=== PATIENT | male | born 1985 | race Caucasian/White ===

== ENCOUNTER 2020-11-14 06:59 | Observation (INO) | payer MEDICAID ==
[2020-11-14] MEDS ORDERED: PANTOPRAZOLE 40 MG/10 ML VIAL IVP STA (07:08)
--- NOTE | 2020-11-14 07:15 | ED ---
General Adult HPI - General Stated complaint: Vomiting Time Seen by Provider: 11/14/20 07:01 Source: patient, EMS, RN notes reviewed Mode of arrival: EMS Limitations: no limitations - History of Present Illness Initial comments: This a 35-year-old male presents emergency Department with chief complaint of significant hematemesis. Patient states that he woke up states he felt sick to his stomach, went to sit on the toilet and states that he started vomiting bright red blood. Patient's significant other in the room states she is an ER nurse steroids roughly several 100 mLs of blood. Patient does have blood noted on his lower extremities. Patient went of upper abdominal pain. Patient had EGD performed by Dr. Wang at [facility] over a year and a half ago. Patient states that he was noted to have some strictures and he was advised to start omeprazole but he has not been taking this. Patient denies any chest pain shortness of breath headache or dizziness patient states she's had no melanotic stools. - Related Data Allergies Allergy/AdvReac Type Severity Reaction Status Date / Time No Known Allergies Allergy Verified 11/14/20 07:12 Review of Systems ROS Statement: Those systems with pertinent positive or pertinent negative responses have been documented in the HPI. ROS Other: All systems not noted in ROS Statement are negative. Past Medical History Past Medical History: No Reported History History of Any Multi-Drug Resistant Organisms: None Reported Past Surgical History: No Surgical Hx Reported Past Psychological History: No Psychological Hx Reported Smoking Status: Never smoker Past Alcohol Use History: Daily Past Drug Use History: None Reported General Exam Limitations: no limitations General appearance: alert, in no apparent distress Head exam: Present: atraumatic, normocephalic, normal inspection Eye exam: Present: normal appearance, PERRL, EOMI. Absent: scleral icterus, conjunctival injection, periorbital swelling Neck exam: Present: normal inspection. Absent: tenderness, meningismus, lymphadenopathy Respiratory exam: Present: normal lung sounds bilaterally. Absent: respiratory distress, wheezes, rales, rhonchi, stridor Cardiovascular Exam: Present: regular rate, normal rhythm, normal heart sounds. Absent: systolic murmur, diastolic murmur, rubs, gallop, clicks GI/Abdominal exam: Present: soft, tenderness (Moderate upper), normal bowel sounds. Absent: distended, guarding, rebound, rigid Back exam: Absent: CVA tenderness (R), CVA tenderness (L) Neurological exam: Present: alert Skin exam: Present: warm, dry, intact, normal color. Absent: rash Course Vital Signs 11/14/20 11/14/20 07:05 07:58 Temperature 97.9 F Pulse Rate 88 96 Respiratory 18 Rate Blood Pressure 97/70 116/74 O2 Sat by Pulse 97 99 Oximetry Medical Decision Making - Medical Decision Making 35-year-old male presented for hematemesis. Patient did have reported significant amount of hematemesis. Patient is very heavy binge drinker patient does have some prior strictures on EGD. Patient was given Protonix will be admitted for GI consult for possible esophageal varices. - Lab Data Result diagrams: 11/14/20 07:20 11/14/20 07:20 Lab Results 11/14/20 11/14/20 11/14/20 Range/Units 07:20 07:20 07:20 WBC 12.9 H (3.8-10.6) k/uL RBC 4.29 L (4.30-5.90) m/uL Hgb 13.9 (13.0-17.5) gm/dL Hct 40.6 (39.0-53.0) % MCV 94.5 (80.0-100.0) fL MCH 32.3 (25.0-35.0) pg MCHC 34.2 (31.0-37.0) g/dL RDW 14.5 (11.5-15.5) % Plt Count 258 (150-450) k/uL MPV 7.4 Neutrophils % 80 % Lymphocytes % 13 % Monocytes % 4 % Eosinophils % 1 % Basophils % 1 % Neutrophils # 10.4 H (1.3-7.7) k/uL Lymphocytes # 1.6 (1.0-4.8) k/uL Monocytes # 0.5 (0-1.0) k/uL Eosinophils # 0.1 (0-0.7) k/uL Basophils # 0.1 (0-0.2) k/uL Poikilocytosis Slight PT (9.0-12.0) sec INR (<1.2) APTT (22.0-30.0) sec Sodium 138 (137-145) mmol/L Potassium 4.0 (3.5-5.1) mmol/L Chloride 108 H (98-107) mmol/L Carbon Dioxide 17 L (22-30) mmol/L Anion Gap 13 mmol/L BUN 20 (9-20) mg/dL Creatinine 0.75 (0.66-1.25) mg/dL Est GFR (CKD-EPI)AfAm >90 (>60 ml/min/1.73 sqM) Est GFR (CKD-EPI)NonAf >90 (>60 ml/min/1.73 sqM) Glucose 109 H (74-99) mg/dL Plasma Lactic Acid Nikhil 2.0 (0.7-2.0) mmol/L Calcium 8.6 (8.4-10.2) mg/dL Total Bilirubin 0.4 (0.2-1.3) mg/dL AST 39 (17-59) U/L ALT 62 H (4-49) U/L Alkaline Phosphatase 47 (38-126) U/L Total Protein 6.3 (6.3-8.2) g/dL Albumin 3.7 (3.5-5.0) g/dL Amylase 59 (30-110) U/L Lipase 52 (23-300) U/L Serum Alcohol 115 mg/dL 11/14/20 Range/Units 07:20 WBC (3.8-10.6) k/uL RBC (4.30-5.90) m/uL Hgb (13.0-17.5) gm/dL Hct (39.0-53.0) % MCV (80.0-100.0) fL MCH (25.0-35.0) pg MCHC (31.0-37.0) g/dL RDW (11.5-15.5) % Plt Count (150-450) k/uL MPV Neutrophils % % Lymphocytes % % Monocytes % % Eosinophils % % Basophils % % Neutrophils # (1.3-7.7) k/uL Lymphocytes # (1.0-4.8) k/uL Monocytes # (0-1.0) k/uL Eosinophils # (0-0.7) k/uL Basophils # (0-0.2) k/uL Poikilocytosis PT 11.0 (9.0-12.0) sec INR 1.0 (<1.2) APTT 21.4 L (22.0-30.0) sec Sodium (137-145) mmol/L Potassium (3.5-5.1) mmol/L Chloride (98-107) mmol/L Carbon Dioxide (22-30) mmol/L Anion Gap mmol/L BUN (9-20) mg/dL Creatinine (0.66-1.25) mg/dL Est GFR (CKD-EPI)AfAm (>60 ml/min/1.73 sqM) Est GFR (CKD-EPI)NonAf (>60 ml/min/1.73 sqM) Glucose (74-99) mg/dL Plasma Lactic Acid Nikhil (0.7-2.0) mmol/L Calcium (8.4-10.2) mg/dL Total Bilirubin (0.2-1.3) mg/dL AST (17-59) U/L ALT (4-49) U/L Alkaline Phosphatase (38-126) U/L Total Protein (6.3-8.2) g/dL Albumin (3.5-5.0) g/dL Amylase (30-110) U/L Lipase (23-300) U/L Serum Alcohol mg/dL Disposition Clinical Impression: Hematemesis, Alcohol abuse, Peptic ulcer disease Disposition: ADMITTED IP TO THIS [facility] Condition: Fair Referrals: None,Stated [Primary Care Provider] - 1-2 days
[2020-11-14 07:32] LABS: Basophils # (A) 0.1 k/uL (0-0.2); Basophils % (A) 1 %; Eosinophils # (A) 0.1 k/uL (0-0.7); Eosinophils % (A) 1 %; HCT 40.6 % (39.0-53.0); HGB 13.9 gm/dL (13.0-17.5); Lymphocytes # (A) 1.6 k/uL (1.0-4.8); Lymphocytes % (A) 13 %; MCH 32.3 pg (25.0-35.0); MCHC 34.2 g/dL (31.0-37.0); MCV 94.5 fL (80.0-100.0); Mean Platelet Volume 7.4; Monocytes # (A) 0.5 k/uL (0-1.0); Monocytes % (A) 4 %; Neutrophils # (A) 10.4 k/uL (1.3-7.7); Neutrophils % (A) 80 %; Platelet Count 258 k/uL (150-450); Poikilocytosis Slight; RBC 4.29 m/uL (4.30-5.90); RDW 14.5 % (11.5-15.5); WBC 12.9 k/uL (3.8-10.6)
[2020-11-14 07:44] LABS: ALT 62 U/L (4-49); AST 39 U/L (17-59); African American GFR (CKD) >90 (>60 ml/min/1.73 sqM); Albumin 3.7 g/dL (3.5-5.0); Alkaline Phosphatase 47 U/L (38-126); Amylase 59 U/L (30-110); Anion Gap 13 mmol/L; Blood Urea Nitrogen 20 mg/dL (9-20); Calcium 8.6 mg/dL (8.4-10.2); Carbon Dioxide 17 mmol/L (22-30); Chloride 108 mmol/L (98-107); Glucose 109 mg/dL (74-99); Lipase 52 U/L (23-300); Non-African American GFR(CKD) >90 (>60 ml/min/1.73 sqM); Sodium 138 mmol/L (137-145); Total Bilirubin 0.4 mg/dL (0.2-1.3); Total Protein 6.3 g/dL (6.3-8.2)
[2020-11-14 07:48] LABS: Alcohol 115 mg/dL
[2020-11-14 08:03] LABS: Partial Thromboplastin Time 21.4 sec (22.0-30.0)
[2020-11-14 08:14] LABS: Appearance,Urine Clear (Clear); Bilirubin,Urine Negative (Negative); Blood,Urine Negative (Negative); Color,Urine Yellow; Glucose,Urine (UA) Trace (Negative); Ketones,Urine 3+ (Negative); Leukocyte Esterase,Urine Negative (Negative); Nitrite,Urine Negative (Negative); PH, Urine 5.5 (5.0-8.0); Protein,Urine Negative (Negative); Specific Gravity,Urine 1.022 (1.001-1.035); Urobilinogen,Urine <2.0 mg/dL (<2.0)
[2020-11-14] MEDS ORDERED: MORPHINE SULFATE 4 MG/ML SYRINGE IVP STA (08:29)
[2020-11-14] MEDS ORDERED: METOCLOPRAMIDE 5 MG/ML 2 ML VIAL IVP STA (08:59)
[2020-11-14] MEDS ORDERED: NALOXONE 0.4 MG/ML 1 ML VIAL IV PRN (09:25)
[2020-11-14] MEDS ORDERED: LORazepam 2 MG/ML INJ IV PRN ×3 (09:26)
[2020-11-14] MEDS: SODIUM CHLORIDE 0.9% 1,000 ML IV SCH (09:53)
--- NOTE | 2020-11-14 11:36 | P.HPIM ---
History of Present Illness H&P Date: 11/14/20 This is a 35-year-old male with past medical history significant for heavy alcohol abuse who presented to the emergency room with a chief complaint of vomiting blood. Patient said he woke up this morning around 3 AM and was feeling nauseous and vomited bright red blood. His who is a registered nurse at bedside said that it was approximately 500 mL of blood. Patient himself denies any significant abdominal pain. He said that he is only having some discomfort. He never had GI bleed in the past. Patient said that he drinks 20 beers per day on the weekend and maybe 7 or 8 beers during the week. He was evaluated in the ER and was found to be hemodynamically stable. Hemoglobin 13.9. Patient will be admitted to the hospital for further management. Review of Systems Review of system: 14 points review of systems were obtained and were negative except to what were mentioned in the HPI. Past Medical History Past Medical History: No Reported History History of Any Multi-Drug Resistant Organisms: None Reported Past Surgical History: Orthopedic Surgery Additional Past Surgical History / Comment(s): egd, right shoulder surgery Past Anesthesia/Blood Transfusion Reactions: No Reported Reaction Past Psychological History: No Psychological Hx Reported Smoking Status: Never smoker Past Alcohol Use History: Daily Past Drug Use History: None Reported - Past Family History Mother Family Medical History: Diabetes Mellitus Medications and Allergies Home Medications Medication Instructions Recorded Confirmed Type No Known Home Medications 11/14/20 11/14/20 History Allergies Allergy/AdvReac Type Severity Reaction Status Date / Time No Known Allergies Allergy Verified 11/14/20 08:50 Physical Exam Vitals: Vital Signs Temp Pulse Pulse Resp BP BP Pulse Ox 11/14/20 10:35 98.1 F 97 18 120/64 95 11/14/20 10:24 96 18 109/82 99 11/14/20 08:59 93 18 111/69 99 11/14/20 07:58 96 116/74 99 11/14/20 07:05 97.9 F 88 18 97/70 97 Intake and Output 11/13/20 11/14/20 11/14/20 22:59 06:59 14:59 Other: Weight 90.718 kg General: The patient is awake and alert, in no distress Eye: there is normal conjunctiva bilaterally. Neck: The neck is supple, there is no JVD. Cardiovascular: Normal S1-S2, no S3-S4, no murmurs. Respiratory: Lungs clear to auscultation bilaterally Gastrointestinal: Abdomen is soft, nontender Musculoskeletal: There is no pedal edema. Neurological:. Speech is normal. Skin: Skin is warm and dry Results CBC & Chem 7: 11/14/20 07:20 11/14/20 07:20 Labs: Abnormal Lab Results - Last 24 Hours (Table) 11/14/20 11/14/20 11/14/20 Range/Units 07:20 07:20 07:20 WBC 12.9 H (3.8-10.6) k/uL RBC 4.29 L (4.30-5.90) m/uL Neutrophils # 10.4 H (1.3-7.7) k/uL APTT (22.0-30.0) sec Chloride 108 H (98-107) mmol/L Carbon Dioxide 17 L (22-30) mmol/L Glucose 109 H (74-99) mg/dL ALT 62 H (4-49) U/L Urine Glucose (UA) Trace H (Negative) Urine Ketones 3+ H (Negative) 11/14/20 Range/Units 07:20 WBC (3.8-10.6) k/uL RBC (4.30-5.90) m/uL Neutrophils # (1.3-7.7) k/uL APTT 21.4 L (22.0-30.0) sec Chloride (98-107) mmol/L Carbon Dioxide (22-30) mmol/L Glucose (74-99) mg/dL ALT (4-49) U/L Urine Glucose (UA) (Negative) Urine Ketones (Negative) Thrombosis Risk Factor Assmnt - Choose All That Apply Any of the Below Risk Factors Present?: Yes Each Factor Represents 1 point: Obesity (BMI >25) Other Risk Factors: No Thrombosis Risk Factor Assessment Total Risk Factor Score: 1 Thrombosis Risk Factor Assessment Level: Low Risk Assessment and Plan Assessment: 1. Hematemesis 2. Heavy alcohol abuse 3. History of esophageal structure Today, I reviewed his medication list and lab work results. Continue nothing by mouth for now. IV Protonix 40 mg twice daily. Repeat hemoglobin in the morning and earlier if recurrent bleeding. Patient was counseled extensively regarding alcohol cessation. He will be started on IV Ativan as needed for withdrawal per protocol. Continue IV fluid hydration with normal saline at 75 mL per hour. Patient and his at bedside updated about his current condition.
[2020-11-14] MEDS: ONDANSETRON 4 MG/2 ML VIAL IVP PRN ×3 (12:29→22:55)
--- NOTE | 2020-11-14 16:26 | US ---
EXAMINATION TYPE: US liver DATE OF EXAM: 11/14/2020 COMPARISON: NONE CLINICAL HISTORY: cirrhosis?. Abdomen pain Exam done portable. EXAM MEASUREMENTS: Liver Length: 15.7 cm Gallbladder Wall: 0.2 cm CBD: 0.3 cm Right Kidney: 12.1 x 5.6 x 5.6 cm Pancreas: visualized portions wnl, limited by overlying midline bowel gas Liver: wnl Gallbladder: wnl Evidence for sonographic Rico's sign: no CBD: visualized portions wnl, limited by overlying bowel gas Right Kidney: wnl IMPRESSION: Negative limited abdominal sonogram. No gallstones or dilated ducts. No evidence of cirrh osis.
[2020-11-14] MEDS: MORPHINE SULFATE 2 MG/ML SYRINGE IVP PRN ×2 (16:57→22:55)
[2020-11-14 20:47] LABS: Basophils # (A) 0.1 k/uL (0-0.2); Basophils % (A) 1 %; Eosinophils # (A) 0.1 k/uL (0-0.7); Eosinophils % (A) 1 %; HGB 13.4 gm/dL (13.0-17.5); Lymphocytes # (A) 2.3 k/uL (1.0-4.8); Lymphocytes % (A) 23 %; MCH 32.3 pg (25.0-35.0); MCHC 34.5 g/dL (31.0-37.0); MCV 93.6 fL (80.0-100.0); Mean Platelet Volume 7.8; Monocytes # (A) 0.7 k/uL (0-1.0); Monocytes % (A) 7 %; Neutrophils # (A) 6.4 k/uL (1.3-7.7); Neutrophils % (A) 65 %; Platelet Count 238 k/uL (150-450); Poikilocytosis Slight; RBC 4.16 m/uL (4.30-5.90); RDW 14.9 % (11.5-15.5); WBC 9.7 k/uL (3.8-10.6)
[2020-11-14] MEDS: PANTOPRAZOLE 40 MG/10 ML VIAL IV SCH (22:55)
[2020-11-14 23:42] LABS: Basophils % (A) 0 %; Eosinophils # (A) 0.1 k/uL (0-0.7); Eosinophils % (A) 1 %; HCT 36.8 % (39.0-53.0); HGB 12.7 gm/dL (13.0-17.5); Lymphocytes # (A) 3.1 k/uL (1.0-4.8); Lymphocytes % (A) 30 %; MCH 32.5 pg (25.0-35.0); MCHC 34.6 g/dL (31.0-37.0); MCV 93.8 fL (80.0-100.0); Mean Platelet Volume 7.6; Monocytes # (A) 0.7 k/uL (0-1.0); Monocytes % (A) 7 %; Neutrophils % (A) 59 %; Platelet Count 239 k/uL (150-450); Poikilocytosis Slight; RBC 3.92 m/uL (4.30-5.90); RDW 14.7 % (11.5-15.5); WBC 10.3 k/uL (3.8-10.6)
[2020-11-15] MEDS: SODIUM CHLORIDE 0.9% 1,000 ML IV SCH (01:10)
[2020-11-15 05:13] LABS: Basophils % (A) 0 %; Eosinophils # (A) 0.1 k/uL (0-0.7); Eosinophils % (A) 2 %; HCT 35.7 % (39.0-53.0); HGB 12.2 gm/dL (13.0-17.5); Lymphocytes # (A) 1.9 k/uL (1.0-4.8); Lymphocytes % (A) 28 %; MCH 32.1 pg (25.0-35.0); MCHC 34.2 g/dL (31.0-37.0); Mean Platelet Volume 7.9; Monocytes # (A) 0.6 k/uL (0-1.0); Monocytes % (A) 8 %; Neutrophils # (A) 4.1 k/uL (1.3-7.7); Neutrophils % (A) 60 %; Platelet Count 208 k/uL (150-450); Poikilocytosis Slight; RDW 14.5 % (11.5-15.5); WBC 6.9 k/uL (3.8-10.6)
[2020-11-15] MEDS: PANTOPRAZOLE 40 MG/10 ML VIAL IV SCH ×2 (07:14→22:17)
[2020-11-15] MEDS ORDERED: IV FLUID CONTINUATION 100 ML IV ONE (08:14)
[2020-11-15] MEDS ORDERED: LIDOCAINE 1% INJ 10MG/ML (20 ML MDV) ONE (08:14)
[2020-11-15] MEDS ORDERED: PROPOFOL 10 MG/ML 20 ML VIAL IV ONE (08:14)
--- NOTE | 2020-11-15 08:35 | P.PCN ---
Date of Procedure: 11/15/20 Procedure(s) Performed: BRIEF HISTORY: Patient is a 35-year-old, pleasant, white male admitted hospital with hematemesis and multiple episodes of black tarry stools. Initial hemoglobin was 13.9 and subsequently dropped to 12.2 g/dL. He scheduled for an upper endoscopy to evaluate further. PROCEDURE PERFORMED: Esophagogastroduodenoscopy and Endo Clip placement. PREOPERATIVE DIAGNOSIS: Acute upper GI bleed. IV sedation per anesthesia. PROCEDURE: After informed consent was obtained, the patient was brought into the endoscopy unit. IV sedation was administered by Anesthesia under continuous monitoring. Initially the Olympus GIF-140 video endoscope was inserted into the mouth. Esophagus intubated without any difficulty. It was gradually advanced into the stomach and duodenum and carefully examined. The bulb and the second part of the duodenum appeared normal. The scope at this time was withdrawn to the stomach, adequately insufflated with air, and upon careful examination, mucosa of the antrum scattered erosions. There was no active bleeding noted. The, body, cardia and the fundus appeared normal. The scope was then withdrawn into the esophagus. The GE junction was located at 42 cm from the incisors. At the GE junction there was a linear ulceration noted with a visible vessel con sistent with a Debra-Kirby tear. There was no active bleeding noted. 2 clips were placed on the visible vessel to prevent further bleeding. The rest of the esophagus appeared normal. There were no erosions or ulcerations seen and the patient tolerated the procedure well. IMPRESSION: 1. Debra-Kirby tear at the GE junction with a visible vessel status post Endo Clip placement. 2. Erosive gastritis. RECOMMENDATIONS: The findings of this examination were discussed with the patient as well as his family.. He'll be continued on Protonix tear liquid diet for lunch today. Monitor CBC every 12 hours. Advance diet as tolerated if he has no further episodes of bleeding. He can be discharged home tomorrow.
--- NOTE | 2020-11-15 11:08 | P.PN ---
Subjective Progress Note Date: 11/15/20 Patient is doing well today. He denies abdominal pain or vomiting blood. He is tolerating liquid with no difficulty. Objective - Vital Signs Vital signs: Vital Signs Temp 98.4 F 11/15/20 09:03 Pulse 70 11/15/20 09:03 Resp 17 11/15/20 09:03 BP 107/70 11/15/20 09:03 Pulse Ox 100 11/15/20 09:03 Intake & Output 11/14/20 11/15/20 11/15/20 18:59 06:59 18:59 Intake Total 50 Balance 50 Weight 90.718 kg Intake: IV 50 Other: Voiding Method Toilet # Voids 3 4 # Bowel Movements 3 - Exam General: The patient is awake and alert, in no distress Eye: there is normal conjunctiva bilaterally. Neck: The neck is supple, there is no JVD. Cardiovascular: Normal S1-S2, no S3-S4, no murmurs. Respiratory: Lungs clear to auscultation bilaterally Gastrointestinal: Abdomen is soft, nontender Musculoskeletal: There is no pedal edema. Neurological:. Speech is normal. Skin: Skin is warm and dry - Labs CBC & Chem 7: 11/15/20 04:54 11/14/20 07:20 Labs: Abnormal Lab Results - Last 24 Hours (Table) 11/14/20 11/14/20 11/15/20 Range/Units 20:02 23:30 04:54 RBC 4.16 L 3.92 L 3.80 L (4.30-5.90) m/uL Hgb 12.7 L 12.2 L (13.0-17.5) gm/dL Hct 36.8 L 35.7 L (39.0-53.0) % Assessment and Plan Assessment: 1. Hematemesis 2. Heavy alcohol abuse 3. History of esophageal structure 4. Acute blood loss anemia Patient was seen and evaluated by GI. He underwent EGD showing evidence of Debra-Kirby tear at the GE junction with a visible vessel status post Endo Clip placement. There is evidence of erosive gastritis. Continue Protonix twice daily. Repeat lab work in the morning. Patient was counseled extensively regarding alcohol cessation. Patient and his at bedside updated about his current condition. Anticipate discharge home in the morning.
--- NOTE | 2020-11-15 12:02 | CONS ---
CONSULTATION DATE OF DICTATION: 11/15/2020 REASON FOR CONSULTATION: Acute upper GI bleed. HISTORY OF PRESENT ILLNESS: The patient is a 35-year-old pleasant white male who came to the emergency room after having an episode of hematemesis yesterday morning. Subsequently he started having multiple episodes of black tarry stools. Apparently in the ER he was told that he had thrown up at least 500 mL of bright red blood. The patient has been drinking heavily lately. He denies any peptic ulcer disease. No recent NSAID use. In the emergency room, his hemoglobin was 13.9 g/dL and he was subsequently admitted to the floor. Through the night he had several episodes of black tarry stools. The patient has been complaining of some epigastric discomfort. No prior history of peptic ulcer disease or recent NSAID use. No prior history of GI bleed. His repeat hemoglobin was 12.3 g/dL. PAST MEDICAL HISTORY: Alcohol abuse. PAST SURGICAL HISTORY: EGD, right shoulder surgery. MEDICATIONS: Medications at home: None. ALLERGIES: NO KNOWN DRUG ALLERGIES. SOCIAL HISTORY: No smoking. Alcohol use as mentioned above. FAMILY HISTORY: Mother has diabetes mellitus. REVIEW OF SYSTEMS: CARDIOPULMONARY: No chest pain or shortness of breath. GENITOURINARY: No dysuria or hematuria. MUSCULOSKELETAL: Unremarkable. SKIN: Unremarkable. ENDOCRINE: Unremarkable. PSYCHIATRY: Unremarkable. NEUROLOGY: Unremarkable. ENT/VISION: Unremarkable. CONSTITUTIONAL: No recent weight loss. No fever, chills, night sweats. PHYSICAL EXAMINATION: He appears comfortable. No apparent distress. VITAL SIGNS: Vital signs are stable. Blood pressure is 112/70, pulse rate 73, temperature 97.9. HEENT EXAMINATION: Unremarkable. Conjunctivae pink. Sclerae anicteric. Oral cavity no lesions. NECK: No JVD. No lymph node enlargement. CHEST: Clear to auscultation. HEART: Regular rate and rhythm. ABDOMEN: Soft. There was very minimal tenderness in the epigastric area. Rest of the abdomen was benign. Bowel sounds are positive. No organomegaly. EXTREMITIES: No pedal edema. NEURO: Alert and oriented x3. No focal deficits. LABS: Labs at the time of admission to the hospital: WBC 12.9, hemoglobin 13.9. This morning hemoglobin is 12.2. PT/INR is within normal limits. BUN and creatinine are normal. AST and ALT are 39 and 62, respectively. T-bilirubin and alkaline phosphatase are within normal limits. IMPRESSION: 1. Acute upper gastrointestinal bleed in this patient who has history of heavy alcohol abuse for the last few months. No history of peptic ulcer disease or recent NSAID use. Rule out possibility of peptic ulcer disease or other etiologies. Initial hemoglobin was 13.9 and subsequently it dropped to 12.2 g/dL. The patient had several episodes of black tarry stools through the night and one episode of hematemesis. Currently hemodynamically stable. 2. Heavy alcohol abuse. RECOMMENDATIONS: 1. Continue with IV Protonix 40 mg q.12 hours. 2. CBC every 6 hours. 3. Will proceed with an upper endoscopy. Discussed with the patient risks, benefits and complications, and he is agreeable to it. Thank you for this consultation. KAYLEY / HASMUKHN: [id number] /
[2020-11-15 12:42] LABS: Basophils # (A) 0.04 X 10*3/uL (0.00-0.10); Basophils % (A) 0.6 %; Eosinophils # (A) 0.14 X 10*3/uL (0.04-0.35); Eosinophils % (A) 2.1 %; HCT 32.8 % (39.6-50.0); HGB 11.4 g/dL (13.0-17.0); Lymphocytes # (A) 1.64 X 10*3/uL (0.90-5.00); Lymphocytes % (A) 24.8 %; MCH 31.8 pg (27.0-32.0); MCHC 34.8 g/dL (32.0-37.0); MCV 91.6 fL (80.0-97.0); Mean Platelet Volume 10.3 fL (9.5-12.2); Monocytes # (A) 0.67 X 10*3/uL (0.20-1.00); Monocytes % (A) 10.2 %; Neutrophils # (A) 4.09 X 10*3/uL (1.80-7.70); Platelet Count 221 X 10*3/uL (140-440); RBC 3.58 X 10*6/uL (4.40-5.60); RDW 13.2 % (11.5-14.5)
[2020-11-16 03:22] VITALS: RESP 16
[2020-11-16] MEDS ORDERED: SODIUM CHLORIDE 0.9% 1,000 ML IV SCH (07:00)
[2020-11-16 07:20] VITALS: BP 125/78; PULSE 57; TEMP 97.8
[2020-11-16] MEDS: PANTOPRAZOLE 40 MG/10 ML VIAL IV SCH (08:17)
--- NOTE | 2020-11-16 10:15 | P.DS ---
Providers Date of admission: 11/14/20 09:44 Expected date of discharge: 11/16/20 Attending physician: Lidia Mckenzie Consults: 11/14/20 09:25 Consult Physician Urgent Consulting Provider: Margarita Dodson Consult Reason/Comments: Hematemesis Do you want consulting provider notified?: Yes Primary care physician: Stated None Hospital Course: This is a 35-year-old male who presented to the emergency room after he vomited blood at home. Patient admits to heavy drinking with approximately 15 beers per day. Patient was admitted to the hospital for further management of his medical problems noted below. 1. Hematemesis 2. Heavy alcohol abuse 3. History of esophageal structure 4. Acute blood loss anemia Patient was seen and evaluated by GI. He underwent EGD showing evidence of Debra-Kirby tear at the GE junction with a visible vessel status post Endo Clip placement. There is evidence of erosive gastritis. Continue Protonix daily. Patient was counseled extensively regarding alcohol cessation. Patient was seen and evaluated by me on the day of discharge. Patient Condition at Discharge: Fair Plan - Discharge Summary Discharge Rx Participant: No New Discharge Prescriptions: New Folic Acid 0.4 mg PO DAILY #30 tab Thiamine [Vitamin B-1] 100 mg PO DAILY #30 tablet Ferrous Sulfate [Feosol] 325 mg PO DAILY #30 tab Pantoprazole Sodium [Protonix] 40 mg PO DAILY #30 tab Discharge Medication List Ferrous Sulfate [Feosol] 325 mg PO DAILY #30 tab 11/16/20 [Rx] Folic Acid 0.4 mg PO DAILY #30 tab 11/16/20 [Rx] Pantoprazole Sodium [Protonix] 40 mg PO DAILY #30 tab 11/16/20 [Rx] Thiamine [Vitamin B-1] 100 mg PO DAILY #30 tablet 11/16/20 [Rx] Follow up Appointment(s)/Referral(s): None,Stated [Primary Care Provider] - 1-2 days Patient Instructions/Handouts: Alcohol Intoxication (IP) Discharge Disposition: HOME SELF-CARE
[2020-11-16 14:28] LABS: Basophils # (A) 0.03 X 10*3/uL (0.00-0.10); Basophils % (A) 0.5 %; Eosinophils # (A) 0.12 X 10*3/uL (0.04-0.35); HCT 34.1 % (39.6-50.0); HGB 11.7 g/dL (13.0-17.0); Lymphocytes # (A) 1.53 X 10*3/uL (0.90-5.00); Lymphocytes % (A) 25.4 %; MCH 31.6 pg (27.0-32.0); MCHC 34.3 g/dL (32.0-37.0); MCV 92.2 fL (80.0-97.0); Mean Platelet Volume 10.2 fL (9.5-12.2); Monocytes # (A) 0.56 X 10*3/uL (0.20-1.00); Monocytes % (A) 9.3 %; Neutrophils # (A) 3.76 X 10*3/uL (1.80-7.70); Neutrophils % (A) 62.3 %; Platelet Count 219 X 10*3/uL (140-440); RDW 13.2 % (11.5-14.5); WBC 6.03 X 10*3/uL (4.50-10.00)
== END 2020-11-16 11:25 | disposition home or self-care (01) ==
LOC: EC 06:59 → 4SSUR 09:44
PROVIDERS: ADMIT Internal Medicine; ATTEND Internal Medicine
DX: K22.6 Gastro-esophageal laceration-hemorrhage syndrome (principal); K92.0 Hematemesis; D62 Acute posthemorrhagic anemia; F10.10 Alcohol abuse, uncomplicated; K27.9 Peptic ulcer, site unspecified, unspecified as acute or chronic, without hemorrhage or perforation; K29.60 Other gastritis without bleeding; Z83.3 Family history of diabetes mellitus
CPT/HCPCS: 96376 ×3; 96375 ×2; 96374; 99285; 36415; 80053; 82150; 83605; 83690; 85025 ×3; 85610; 85730; 81003; 80320; 76705; 43255; G0378 ×3; J2270 ×2; J2765; J2405; J2001; J2704; C9113 ×3